=== PATIENT | female | born 1960 | race Caucasian/White ===

== ENCOUNTER 2016-11-19 11:43 | Inpatient (IN) | payer OTHER ==
[~2016-11-19] VITALS: Ht 172.7 cm; Wt 102.5 kg
[~2016-11-19 11:43] MED LIST: BENTYL20 MG PO; BUSPAR10 MG PO; CIPROFLOXACIN500 M1 PO; CLONAZEPAM0.5 MG PO; DICLOFENAC SOD100 MG PO; FLUTICASONE PRO16 GM BOTH NARES; LORTAB 5-325 M1 EACH PO; LOSARTAN POTAS100 MG PO; METRONIDAZOLE500 MG PO; PRAVACHOL40 MG PO; PRAVASTATIN SOD20 MG PO; PRILOSEC40 MG PO; PROZAC40 MG PO; TUMS500 MG PO; VAGIFEM10 MCG VG
[2016-11-19 13:06] LABS: ADD MIUA? NO; BILIRUBIN NEGATIVE; BLOOD NEGATIVE; COLOR STRAW ((YELLOW)); GLUCOSE (STRIP) NEGATIVE; KETONES NEGATIVE; LEUKOCYTES NEGATIVE; NITRITE NEGATIVE; PROTEIN (STRIP) NEGATIVE; SPECIFIC GRAVITY 1.009 (1.000-1.030); UCUL ADDED? NO; UROBILINOGEN 0.2 MG/DL (0.2-1.0)
[2016-11-19 13:26] LABS: BASOPHIL COUNT 0.1 K/uL (0-0.1); EOSINOPHIL (%) 0.5 % (0-5); EOSINOPHIL COUNT 0.1 K/uL (0-0.3); HEMATOCRIT 40.7 % (36.0-46.0); IMMATURE GRANULOCYTE (%) 0.5 % (0.0-0.7); IMMATURE GRANULOCYTE COUNT 0.1 K/uL; INSTRUMENT ABS NEUTROPHIL CT 8.1 K/uL; LYMPHOCYTE COUNT 1.6 K/uL (1.0-2.8); MCH 30.4 PG (29.0-34.0); MCHC 33.7 G/DL (30.0-36.0); MCV 90.2 FL (83-99); MEAN PLAT.VOLUME 8.9 uM^3 (9.5-12.4); MONOCYTE (%) 5.3 % (3-12); MONOCYTE COUNT 0.6 K/uL (0-0.8); NEUTROPHIL (%) 77.6 % (45-76); NEUTROPHIL COUNT 8.1 K/uL (1.8-6.4); PLATELET COUNT 264 K/uL (156-360); RBC DIS.WIDTH-CV 11.9 % (11.8-14.6); RED BLOOD COUNT 4.51 M/uL (3.80-5.20); WHITE BLOOD COUNT 10.4 K/uL (4.1-10.2)
[2016-11-19 13:38] LABS: CHLORIDE 110 mEq/L (99-109); POTASSIUM 4.3 mEq/L (3.7-5.4); SODIUM 141 mEq/L (136-147)
[2016-11-19 13:40] LABS: GLUCOSE 105 mg/dL (70-99)
[2016-11-19 13:42] LABS: ANION GAP 9 MEQ/L (2-14); TOTAL BILIRUBIN 0.3 mg/dL (0.0-1.0)
[2016-11-19 13:44] LABS: ALKALINE PHOSPHATASE 61 IU/L (3-129); GFR ESTIMATE (CALCULATED) > 59 mL/min/
[2016-11-19 13:45] LABS: UREA NITROGEN (BUN) 14 mg/dL (9-23)
[2016-11-19 13:49] LABS: TROP-I INTERPRETATION NEGATIVE; TROPONIN-I < 0.01 ng/mL (0.0-0.30)
[2016-11-19 14:20] LABS: HDL CHOLESTEROL 41 MG/DL (Desirable>=50); LDL CHOLESTEROL 181 mg/dL (Desirable<100); NON-HDL CHOLESTEROL 242 mg/dL (Desirable<160); TOTAL CHOLESTEROL 283 mg/dL (Desirable<200); TRIGLYCERIDES 306 MG/DL (Normal: <150)
[2016-11-19 14:21] LABS: Estimated Average Glucose 120 mg/dL (70-123); HEMOGLOBIN A1c (GLYCOHEMOGLOB) 5.8 % HGB (Below 5.7)
[2016-11-19] MEDS ORDERED: FLUOXETINE HCL60 MG PO (14:40)
[2016-11-19] MEDS ORDERED: XANAX0.25 MG PO (14:41)
[2016-11-19 16:43] VITALS: BP 169/88
[2016-11-19 20:00] VITALS: BP 116/62
[2016-11-20] VITALS: BP 124/58
[2016-11-20 04:00] VITALS: BP 109/54
[2016-11-20 07:31] LABS: HEMATOCRIT 37.3 % (36.0-46.0); MCH 29.6 PG (29.0-34.0); MCHC 32.2 G/DL (30.0-36.0); MCV 92.1 FL (83-99); MEAN PLAT.VOLUME 9.5 uM^3 (9.5-12.4); PLATELET COUNT 216 K/uL (156-360); RBC DIS.WIDTH-SD 40.5 % (39-53); RED BLOOD COUNT 4.05 M/uL (3.80-5.20)
[2016-11-20 07:36] LABS: WHITE BLOOD COUNT 6.6 K/uL (4.1-10.2)
[2016-11-20 07:51] VITALS: BP 128/67
[2016-11-20 07:54] LABS: ANION GAP 7 MEQ/L (2-14); CHLORIDE 110 MEQ/L (99-109); GFR ESTIMATE (CALCULATED) > 59 mL/min/; GLUCOSE 91 mg/dL (70-99); SAMPLE HEMOLYSIS CHECK 0; SAMPLE ICTERIC CHECK 0; SAMPLE LIPEMIA CHECK 0; SODIUM 141 MEQ/L (136-147); UREA NITROGEN (BUN) 11 mg/dL (9-23)
[2016-11-20 11:02] VITALS: BP 129/72
[2016-11-20 15:56] VITALS: BP 138/78
== END 2016-11-20 18:42 | disposition home or self-care (01) | DRG 93 ==
LOC: EME 11:43 → 5SOUTH 15:00 → EDOF 15:00 → 5SOUTH 16:24
PROVIDERS: Emergency Medicine; Internal Medicine
DX: R47.1 Dysarthria and anarthria (principal); R53.1 Weakness; R20.2 Paresthesia of skin; F43.9 Reaction to severe stress, unspecified; I10 Essential (primary) hypertension; E78.5 Hyperlipidemia, unspecified; F41.9 Anxiety disorder, unspecified; F32.9 Major depressive disorder, single episode, unspecified; G43.909 Migraine, unspecified, not intractable, without status migrainosus; F17.200 Nicotine dependence, unspecified, uncomplicated; G62.9 Polyneuropathy, unspecified
CPT/HCPCS: 70450; 70496; 70498; 70551; 71010; 72125; 80048; 80053; 80061; 81003; 83036; 84484; 85025; 85027; 93005; 99281; 99285; J1650; J1885; J7030

== ENCOUNTER 2017-12-30 09:11 | Emergency (ER) | payer OTHER ==
[~2017-12-30] VITALS: Ht 172.7 cm; Wt 102.9 kg
[~2017-12-30 09:11] MED LIST changes: +FLUOXETINE HCL60 MG PO; +XANAX0.25 MG PO
[2017-12-30 09:58] LABS: BASOPHIL (%) 0.5 % (0-1); EOSINOPHIL (%) 2.6 % (0-5); EOSINOPHIL COUNT 0.2 K/uL (0-0.3); HEMATOCRIT 40.1 % (36.0-46.0); IMMATURE GRANULOCYTE (%) 0.4 % (0.0-0.7); LYMPHOCYTE (%) 28.4 % (15-42); LYMPHOCYTE COUNT 2.1 K/uL (1.0-2.8); MCH 31.3 PG (29.0-34.0); MCHC 34.9 G/DL (30.0-36.0); MCV 89.5 FL (83-99); MONOCYTE (%) 7.3 % (3-12); MONOCYTE COUNT 0.5 K/uL (0-0.8); NEUTROPHIL (%) 60.8 % (45-76); NEUTROPHIL COUNT 4.5 K/uL (1.8-6.4); PLATELET COUNT 224 K/uL (156-360); RBC DIS.WIDTH-CV 11.3 % (11.8-14.6); RBC DIS.WIDTH-SD 36.6 % (39-53); RED BLOOD COUNT 4.48 M/uL (3.80-5.20); WHITE BLOOD COUNT 7.4 K/uL (4.1-10.2)
[2017-12-30 10:10] LABS: ALBUMIN 4.1 g/dL (3.2-4.8); CHLORIDE 107 mEq/L (99-109); SODIUM 139 mEq/L (136-147)
[2017-12-30 10:12] LABS: GLUCOSE 108 mg/dL (70-99); MAGNESIUM 2.3 mg/dL (1.3-2.7); TOTAL PROTEIN 7.4 g/dL (6.4-8.3)
[2017-12-30 10:14] LABS: TOTAL BILIRUBIN 0.5 mg/dL (0.0-1.0)
[2017-12-30 10:16] LABS: ALKALINE PHOSPHATASE 88 IU/L (3-129); CREATININE 0.9 mg/dL (0.6-1.3); D-DIMER ELISA < 150.00 ng/mLDDU (<230); GFR ESTIMATE (CALCULATED) > 59 mL/min/
[2017-12-30 10:17] LABS: UREA NITROGEN (BUN) 14 mg/dL (9-23)
[2017-12-30 10:18] LABS: AST (GOT) 15 IU/L (2-34)
[2017-12-30 10:19] LABS: ALT (GPT) 15 IU/L (3-49)
[2017-12-30 10:27] LABS: TROP-I INTERPRETATION NEGATIVE; TROPONIN-I < 0.01 ng/mL (0.0-0.30)
[2017-12-30 12:32] LABS: TROP-I INTERPRETATION NEGATIVE; TROPONIN-I < 0.01 ng/mL (0.0-0.30)
[2017-12-30 13:17] VITALS: BP 123/79
== END 2017-12-30 13:17 | disposition home or self-care (01) ==
LOC: EME 09:11
PROVIDERS: Emergency Medicine
DX: R07.9 Chest pain, unspecified (principal); F41.9 Anxiety disorder, unspecified; I10 Essential (primary) hypertension; E78.5 Hyperlipidemia, unspecified; F32.9 Major depressive disorder, single episode, unspecified; F17.200 Nicotine dependence, unspecified, uncomplicated; Z90.710 Acquired absence of both cervix and uterus; Z88.1 Allergy status to other antibiotic agents; Z88.4 Allergy status to anesthetic agent
CPT/HCPCS: 71046; 80053; 83735; 84484; 85025; 85379; 93005; 99281; 99284